=== PATIENT | male | born 1990 | race Caucasian/White ===

== ENCOUNTER → 2017-07-10 | Outpatient (CLI) | payer OTHER ==
[~2017-07-10] MED LIST: AMITRIPTYLINE H50 M1 PO; CYMBALTA 60MG60 MG PO; FIORICET 325 MG1 TA1 PO; KEPPRA1000 MG PO; KEPPRA750 MG PO; NEURONTIN100 MG/CAP PO; NEURONTIN300 MG/CAP PO; NEURONTIN600 MG/TAB PO; ZOLOFT 100MG100 MG PO
== END ==
LOC: COL.RAD 14:50
DX: N28.1 Cyst of kidney, acquired (principal); R16.1 Splenomegaly, not elsewhere classified; W55.22XA Struck by cow, initial encounter
CPT/HCPCS: Q9967